=== PATIENT | male | born 1965 | race Caucasian/White ===

== ENCOUNTER → 2016-10-05 | Outpatient (CLI) | payer OTHER ==
[~2016-10-05] VITALS: Ht 182.9 cm; Wt 154.5 kg
[~2016-10-05] MED LIST: ALLOPURINOL300 MG PO; CARDIZEM120 MG PO; DOLOPHINE HCL5 MG PO; DOXAZOSIN MESYLA8 MG PO; GLUCOPHAGE XR,500 MG PO; LASIX40 MG PO; PRILOSEC40 MG PO; PROZAC40 MG PO; TOPROL XL50 MG PO; ZESTORETIC 20-1 EAC2 PO; ZESTORETIC,P1 TABLE1 PO; ZOCOR5 MG PO
== END | disposition home or self-care (01) ==
LOC: AMB 09-07 10:30
PROC: 0DJDXZZ Inspection of Lower Intestinal Tract, External Approach (ICD-10-PCS; principal; 2016-10-05)
DX: R19.5 Other fecal abnormalities (principal); Z53.09 Procedure and treatment not carried out because of other contraindication

== ENCOUNTER 2016-11-16 18:25 | Emergency (ER) | payer OTHER ==
[~2016-11-16] VITALS: Ht 182.9 cm; Wt 162.0 kg
[2016-11-16 18:35] VITALS: BP 146/97
[2016-11-16] MEDS ORDERED: PERCOCET 5/31 TABLET PO (21:53)
[2016-11-16] MEDS ORDERED: FLEXERIL10 MG PO (21:53)
== END 2016-11-16 22:09 | disposition home or self-care (01) ==
LOC: EME 18:25
DX: S16.1XXA Strain of muscle, fascia and tendon at neck level, initial encounter (principal); S39.012A Strain of muscle, fascia and tendon of lower back, initial encounter; V49.40XA Driver injured in collision with unspecified motor vehicles in traffic accident, initial encounter; Y92.410 Unspecified street and highway as the place of occurrence of the external cause; I10 Essential (primary) hypertension; J45.909 Unspecified asthma, uncomplicated
CPT/HCPCS: 72040; 72100; 72125; 99281; 99283